=== PATIENT | male | born 1950 | race Caucasian/White ===

== ENCOUNTER → 2018-05-18 14:41 | Outpatient (CLI) | payer MEDICARE, OTHER, SELFPAY | PROVIDERS: PCP Family Medicine; Visit Provider Family Medicine | DX: R55 Syncope and collapse (principal) | CPT/HCPCS: 93270 ==

== ENCOUNTER 2020-10-19 10:23 | Emergency (ER) | payer MEDICARE, SELFPAY ==
[2020-10-19 11:05] VITALS: BP 149/84; PULSE 65; RESP 19; TEMP 37.1; O2SAT 100; BMI 24.8
--- NOTE | 2020-10-19 11:24 | HMH.EDUTC ---
[facility] [place] Clinical Impression: Close exposure to COVID-19 virus Disposition: Home, Self-Care Condition on Discharge: Good Instructions: DI for COVID-19 (Suspected or Confirmed ), Coronavirus Disease 2019, Preventing the Spread of Coronavirus Discharge Instructions Additional Instructions: *Monitor Temp, Over the counter Motrin or Tylenol as directed/as needed Tylenol every 4 hours and Motrin every 6 hours (as long as your family doctor has told you that you can take it) for fever or pain. and straight to ER if unable to lower temp less than 101.0 after medication given Follow up IMMEDIATELY for new or worsening symptoms or no Noticeable improvement over the next 48-72 hours. 911 for difficulty breathing or swallowing You were tested for today for COVID19 your test result should be back in the next 24-48 hours, you may call to the [facility] to see if your test results are back in the next 48 hours [phone] [facility] hours are 9am-9pm You was given a handout with instructions for Self Quarantine and Self isolation for while you wait on test results and what to do if they are positive If you are positive the Health Dept will be contacting you also Make sure to take your Vitamins Vit. C Vit D and Zinc if you can take them Referrals: Rolan Wheatley MD [Primary Care Provider] - As needed Time of Disposition: 11:25 Medical Decision Making - Alex Inquiry Pt receiving controlled substance: No Alex was queried for this patient: No Vital Signs: 10/19/20 11:05 Temperature 98.7 F Temperature Source Oral Pulse Rate [Right Brachial] 65 Respiratory Rate 19 Blood Pressure [Right Arm] 149/84 H Blood Pressure Mean [Right Arm] 105 Blood Pressure Source [Right Arm] Automatic Cuff Blood Pressure Position [Right Arm] Sitting 02 Sat by Pulse Oximetry 100 Oxygen Delivery Method Room Air Orders (Tests/Meds): ORDERS Category Date Time Status Covid-19 Nasal PCR ([facility]) Routine Lab 10/19/20 11:00 Received [facility] [place] - General Stated complaint: Covid test; Time Seen by Provider: 10/19/20 11:24 Mode of Arrival: Ambulatory Source of Information: Patient Limitations: No Limitations Description of Symptoms (Recalled from Triage Doc. by RN): COVID TEST D/T EXPOSURE TO . DENIES SYMPTOMS HEENT Symptoms (Recalled from RN notes): No Resp Symptoms (Recalled from RN notes): No Skin Symptoms (Recalled from RN notes): No MS Symptoms (Recalled from RN notes): No Functional Status (Recalled from RN notes): WNL - History of Present Illness Provider Complaint: Patient state that his tested positive last week for COVID States that he has been around her but not having any symptoms and wanted to get tested to make sure he doesnt have it and just not having any symptoms - Related Data Home Medications Medication Instructions Recorded Confirmed Metformin HCl [Metformin 1000mg 1,000 mg PO BID 01/24/19 01/25/19 Tablets] Simvastatin 20 mg PO DAILY 01/24/19 01/25/19 lisinopriL [Lisinopril 20mg Tab] 20 mg PO DAILY 01/24/19 01/25/19 Allergies Allergy/AdvReac Type Severity Reaction Status Date / Time No Known Allergies Allergy Verified 10/19/20 11:17 - Worker's Comp Is this a Worker's Comp case?: No [facility] History - Hepatitis A Screen Drug use history?: No High risk sexual behaviors?: No History of sexually transmitted infection?: No Currently employed?: No Childcare worker?: No Do you have indoor plumbing?: Yes Do you have electricity?: Yes Attestation statement:: This patient has been screened for Hepatitis A risk factors. I have reviewed the patient's past medical history: Yes Medical History: Denies:: Cancer, Diabetes Mellitus Type 1, Diabetes Mellitus Type 2, Internal Pacemaker, MRSA, Seizures Other Surgeries: No: Pacemaker Amputation: No Fractures: No - Social History Smoking Status: Never smoker Alcohol Intake: never Occupational Status: retired Housing: house Household Members: spouse Fa
[2020-10-19 11:30] VITALS: BP 149/84; PULSE 65; RESP 19; TEMP 37.1; O2SAT 100
== END 2020-10-19 11:33 | disposition home or self-care (01) ==
PROVIDERS: Emergency Provider Nurse Practitioner; PCP Family Medicine
DX: Z20.822 Contact with and (suspected) exposure to COVID-19 (principal)
CPT/HCPCS: G0463; 99202; U0003

== ENCOUNTER → 2021-03-26 15:08 | Outpatient (CLI) | payer MEDICARE, SELFPAY | PROVIDERS: PCP Family Medicine; Visit Provider Nurse Practitioner | DX: Z20.822 Contact with and (suspected) exposure to COVID-19 (principal) | CPT/HCPCS: C9803; U0003; U0005 ==

== ENCOUNTER 2022-09-13 10:56 | Observation (INO) | payer MEDICARE, SELFPAY ==
[2022-09-13] VITALS (8 sets, daily range): BP systolic 103–170; BP diastolic 44–96; PULSE 49–64; RESP 15–18; TEMP 36.1–36.8; O2SAT 95–100; BMI 25.8; BMI 27.0
--- NOTE | 2022-09-13 11:02 | PC.NURSE ---
FS 176
--- NOTE | 2022-09-13 11:06 | PC.NURSE ---
EKG completed. To CT
--- NOTE | 2022-09-13 11:06 | CT_ITS ---
PROCEDURE INFORMATION: Exam: CTA Head With Contrast, Arteriography Exam date and time: 09/13/2022 11:16 AM Age: 72 years old Clinical indication: Stroke-like symptoms; RT upper extremity weakness; Additional info: L headache R hand weakness TECHNIQUE: Imaging protocol: Computed tomographic angiography of the head with contrast. Exam focused on the arteries. 3D rendering (Not supervised by radiologist): MIP and/or 3D reconstructed images were created by the technologist. Radiation optimization: All CT scans at this facility use at least one of these dose optimization techniques: automated exposure control; mA and/or kV adjustment per patient size (includes targeted exams where dose is matched to clinical indication); or iterative reconstruction. Contrast material: ISOVUE; Contrast volume: 100 ml; Contrast route: INTRAVENOUS (IV); REPORTING DATA: Count of CT and Cardiac NM exams in prior 12 months: This patient has received 0 known CTs and 0 known cardiac nuclear medicine studies in the 12 months prior to the current study. COMPARISON: CT HEAD/BRAIN WO CON 09/13/2022 11:13 AM FINDINGS: ANTERIOR CIRCULATION: Right internal carotid artery: Intracranial segment is patent with no significant stenosis. No aneurysm. Right middle cerebral artery: No occlusion or significant stenosis. No aneurysm. Right anterior cerebral artery: No occlusion or significant stenosis. No aneurysm. Left internal carotid artery: Intracranial segment is patent with no significant stenosis. No aneurysm. Left middle cerebral artery: No occlusion or significant stenosis. No aneurysm. Left anterior cerebral artery: No occlusion or significant stenosis. No aneurysm. POSTERIOR CIRCULATION: Right vertebral artery: No occlusion or significant stenosis. No aneurysm. Left vertebral artery: Mild stenosis distal segment left vertebral artery. Or significant stenosis. No aneurysm. Basilar artery: No occlusion or significant stenosis. No aneurysm. Right posterior cerebral artery: No occlusion or significant stenosis. No aneurysm. Left posterior cerebral artery: No occlusion or significant stenosis. No aneurysm. Brain: No intracranial hemorrhage, mass effect, or midline shift. Cerebral ventricles: No ventriculomegaly. Bones/joints: Unremarkable. No acute fracture. Soft tissues: Unremarkable. IMPRESSION: Mild stenosis distal segment left vertebral artery otherwise unremarkable CT angiogram of the brain.
--- NOTE | 2022-09-13 11:06 | ECG_ITS ---
APPROVED REPORT Exam: Resting ECG HR:61 bpm ECG Measurements Heart Rate 61 AXES SD 193 P 15 QRSd 100 QRS 24 QT 404 T 29 QTc 406 Conclusion SINUS RHYTHM NORMAL ECG UNCONFIRMED REPORT Electronically signed by : Rolan Feliz MD 09/14/2022 06:59:17
--- NOTE | 2022-09-13 11:06 | CT_ITS ---
PROCEDURE INFORMATION: Exam: CT Head Without Contrast Exam date and time: 09/13/2022 11:13 AM Age: 72 years old Clinical indication: Stroke-like symptoms; RT upper extremity weakness; Additional info: L headache R hand weakness TECHNIQUE: Imaging protocol: Computed tomography of the head without contrast. Radiation optimization: All CT scans at this facility use at least one of these dose optimization techniques: automated exposure control; mA and/or kV adjustment per patient size (includes targeted exams where dose is matched to clinical indication); or iterative reconstruction. Other technique: STROKE PROTOCOL was implemented. REPORTING DATA: Count of CT and Cardiac NM exams in prior 12 months: This patient has received 0 known CTs and 0 known cardiac nuclear medicine studies in the 12 months prior to the current study. COMPARISON: No relevant prior studies available. FINDINGS: Brain: No intracranial hemorrhage. No mass effect, edema or midline shift. Small hypodensities both basal ganglia some which likely represent old lacunar infarcts. There are vague areas of decreased attenuation within the periventricular white matter likely secondary to chronic microvascular changes. Mild age related cerebral volume loss resulting in prominence of cortical sulci. Cerebral ventricles: Unremarkable for age and degree of cerebral volume loss. Paranasal sinuses: Visualized sinuses are unremarkable. No fluid levels. Mastoid air cells: Visualized mastoid air cells are well aerated. Bones/joints: Unremarkable. No acute fracture. Soft tissues: Unremarkable. IMPRESSION: 1. No acute intracranial abnormality. 2. Bilateral old lacunar infarcts both basal ganglia which could be confirmed on MRI examination of the brain.. 3. Diffuse, chronic white matter microvascular changes. ASSESSMENT: ASPECTS ([place] Stroke Program Early CT Score) is 10.
--- NOTE | 2022-09-13 11:06 | CT_ITS ---
PROCEDURE INFORMATION: Exam: CTA Neck With Contrast Exam date and time: 09/13/2022 11:16 AM Age: 72 years old Clinical indication: Stroke-like symptoms; RT upper extremity weakness; Additional info: L headache R hand weakness TECHNIQUE: Imaging protocol: Computed tomographic angiography of the neck with contrast. 3D rendering (Not supervised by radiologist): MIP and/or 3D reconstructed images were created by the technologist. Radiation optimization: All CT scans at this facility use at least one of these dose optimization techniques: automated exposure control; mA and/or kV adjustment per patient size (includes targeted exams where dose is matched to clinical indication); or iterative reconstruction. Contrast material: ISOVUE; Contrast volume: 100 ml; Contrast route: INTRAVENOUS (IV); REPORTING DATA: Count of CT and Cardiac NM exams in prior 12 months: This patient has received 0 known CTs and 0 known cardiac nuclear medicine studies in the 12 months prior to the current study. COMPARISON: CT HEAD/BRAIN WO CON 09/13/2022 11:13 AM FINDINGS: Right common carotid artery: No stenosis. No dissection or occlusion. Right internal carotid artery: No stenosis of the extracranial segment. No dissection or occlusion. Right external carotid artery: No occlusion or stenosis of the origin. Left common carotid artery: No stenosis. No dissection or occlusion. Left internal carotid artery: No stenosis of the extracranial segment. No dissection or occlusion. Left external carotid artery: No occlusion or stenosis of the origin. Right vertebral artery: No stenosis. No dissection or occlusion. Left vertebral artery: Mild stenosis distal portion left vertebral artery.. No dissection or occlusion. Soft tissues: Normal. No significant soft tissue swelling. Bones/joints: No acute fracture. Moderate degenerative changes lower cervical spine. IMPRESSION: 1. Unremarkable CT angiogram of the carotid circulation. 2. Mild stenosis distal segment left vertebral artery otherwise vertebrobasilar circulation is unremarkable. REFERENCES: NASCET CRITERIA. The degree of stenosis in the cervical segment of the internal carotid artery is based on NASCET criteria. Normal is no stenosis. Mild is less than 50% stenosis. Moderate is 50-69% stenosis. Severe is 70% to 99% stenosis. Total occlusion is no detectable patent lumen.
--- NOTE | 2022-09-13 11:08 | HMH.EDGENADL ---
Discharge Plan Disposition Patient Disposition: Home, Self-Care Condition: Good Chief Complaint: Neuro Symptoms/Deficit Prescriptions Prescriptions: No Action lisinopril 20 MG tablet 20 mg PO DAILY simvastatin 20 MG tablet 20 mg PO DAILY metformin 1,000 MG tablet 1,000 mg PO BID Referrals Follow up/Referrals: Shahriar Walker DO [Primary Care Provider] - See instructions Clinical Impressions Clinical Impression: Headache, CVA (cerebral vascular accident) Discharge ED Provider: Mahesh Castellanos General Adult HPI General Chief complaint: Neuro Symptoms/Deficit Stated complaint: right arm weakness headache Time Seen by Provider: 09/13/22 11:01 History of Present Illness HPI narrative: Patient is a 72-year-old male with past medical history of [id number] diabetes who presents emergency department for evaluation of headache. History is obtained by patient and spouse at bedside. Last known normal approximately 12:30 AM this morning. Patient awoke with difficulty doing complex tasks with his right hand with subjective weakness and a severe left-sided headache, no associated photophobia or phonophobia. Patient denies taking blood thinners. Denies gait difficulties, other extremity weakness, difficulty speaking, facial droop. No other acute complaints at this time. Related Data Home Medications Medication Instructions Recorded Confirmed lisinopril 20 mg tablet 20 mg PO DAILY blood pressure 01/24/19 01/25/19 metformin 1,000 mg tablet 1,000 mg PO BID Diabetes 01/24/19 01/25/19 simvastatin 20 mg tablet 20 mg PO DAILY Cholesterol 01/24/19 01/25/19 Allergies Allergy/AdvReac Type Severity Reaction Status Date / Time No Known Allergies Allergy Verified 10/19/20 11:17 [facility] Disclaimer: The information contained in this section may have been updated after the patient was seen, as this information can be updated by other users. Social History Smoking Status: Unknown if ever smoked alcohol intake: never current occupational status: retired Travel in the last 8 weeks: None household members: spouse housing: house current occupational exposures/hazards: No caffeine: Yes ROS Obtained: Yes Systems reviewed as appropriate & no additional complaints except as documented Physical Exam General General appearance: alert and in no apparent distress Head Head exam: atraumatic and normocephalic Eye Eye exam: Present PERRL and EOMI ENT ENT exam: Present mucous membranes moist Neck Neck exam: Present normal inspection Chest Chest inspection: Present normal inspection and symmetric chest wall rise Respiratory Respiratory exam: Present normal lung sounds bilaterally; Absent respiratory distress Cardiovascular Cardiovascular exam: Present regular rate and normal rhythm Abdominal Exam Abdominal exam: Present soft; Absent tenderness Extremities Exam Extremities exam: Present normal inspection Neurological Exam Neurological exam: Present alert, oriented X3 and CN II-XII intact; Absent motor sensory deficit (5 out of 5 strength bilateral upper and lower extremities, palpable bilateral radial pulses. Extraocular movements intact. Pupils equally round and reactive to light. Sensation intact all extremities.) Psychiatric Psychiatric exam: Present normal affect Skin Skin exam: Present warm and dry Medical Decision Making Alex Inquiry Pt receiving controlled substance: No Vital Signs: 09/13/22 11:10 09/13/22 11:30 Temperature 97 F L Temperature Source Oral Pulse Rate 61 Pulse Rate [Right] 62 Respiratory Rate 15 18 Blood Pressure 160/82 H Blood Pressure [Right Arm] 170/96 H Blood Pressure Mean [Right Arm] 120 Blood Pressure Source [Right Arm] Manual Cuff/ Auscultation 02 Sat by Pulse Oximetry 100 98 Oxygen Delivery Method Room Air Room Air Lab Data Lab Results 09/13/22 11:05: POC Glucose 176 H 09/13/22 11:08: WBC 6.9, RBC 4.67,
--- NOTE | 2022-09-13 11:11 | PC.NURSE ---
pt to CT via stretcher
[2022-09-13 11:16] LABS: POC Glucose,Bedside 176 (70-110)
[2022-09-13 11:30] LABS: Basophils % 0.3 % (0.1-2.0); Eosinophils # 0.2 K/mm3 (0.0-0.4); Eosinophils % 3.4 % (0.1-12.0); Hematocrit 44.1 % (42.0-52.0); Hemoglobin 14.3 g/dL (14.1-18.0); Lymphocytes # 1.5 K/mm3 (0.7-4.5); Lymphocytes % 22.3 % (10-50); Mean Corpuscular HGB Conc 32.5 g/dL (31.8-35.4); Mean Corpuscular Hemoglobin 30.7 pg (27.0-31.2); Mean Corpuscular Volume 94.5 fl (80-94); Mean Platelet Volume 8.8 fl (7.4-10.4); Monocytes # 0.4 K/mm3 (0.1-1.0); Neutrophils # 4.7 K/mm3 (1.8-7.8); Neutrophils % 68.1 % (37.0-80.0); Platelet Count 167 K/mm3 (142-424); Red Blood Count 4.67 M/mm3 (4.60-6.20); Red Cell Distribution Width 13.4 % (11.5-17.5); White Blood Count 6.9 K/mm3 (4.8-10.8)
--- NOTE | 2022-09-13 11:30 | PC.NURSE ---
NIH stroke scale assessment done. Score 2 for mild aphagia and RLE drift.
[2022-09-13 11:35] LABS: Alanine Aminotransferase 37 U/L (12-78); Albumin Level 4.4 g/dl (3.5-5.0); Albumin/Globulin Ratio 1.6 (1.1-1.8); Alkaline Phosphatase 55 U/L (38-126); Anion Gap 12.1 mEq/L (5-15); Aspartate Amino Transferase 35 U/L (17-59); Bilirubin,Total 0.5 mg/dl (0.2-1.3); Blood Urea Nitrogen 12 mg/dl (9-20); Calcium 9.3 mg/dl (8.4-10.2); Carbon Dioxide 26 mmol/L (22.0-30.0); Chloride 105 mmol/L (98-107); Chol/HDL Ratio 3.5 (1-3.5); Cholesterol 104 mg/dl (140-200); Creatinine Clearance Estimated 69 mL/min (50-200); Estimated Glomerular Filt Rate 73 ml/min (>60); GFR (African American) 89 ML/MIN (>60); Globulin 2.7 g/dL (1.3-3.2); Glucose 190 mg/dl (74-100); HDL Cholesterol 30 mg/dl (40-60); Potassium 5.1 mmoL/L (3.5-5.1); Sodium 138 mmol/L (136-145); Total Protein,Serum 7.1 g/dl (6.3-8.2); Triglycerides 114 mg/dl (30-150); VLDL Cholesterol 23 mg/dL (0-40)
[2022-09-13 11:37] LABS: Activated Partial Thrombo Time 31.3 seconds (22.8-30.6); Prothrombin Time 11.8 seconds (10.1-12.5)
--- NOTE | 2022-09-13 12:04 | PC.NURSE ---
notified warehouse receiving supervisor of admission
[2022-09-13 12:10] LABS: Coronavirus 19, PCR Not Detected (NotDetected); Influenza A, PCR Not Detected (NotDetected); Influenza B, PCR Not Detected (NotDetected)
--- NOTE | 2022-09-13 12:16 | PC.NURSE ---
Addendum entered by Casandra Richard RN 09/13/22 12:20: V/O from for 5mg of Compazine IVP and 25mg Benadryl IVP Original Note: Md notified of patient taking 1g Tylenol this morning at 0900. V/O from for 5mg of Compazine and 25mg of Benadryl
--- NOTE | 2022-09-13 12:42 | PC.NURSE ---
notified of patients no resolved RLE drift patient now has moderate aphagia. Score is now a 1 for NIH scale
--- NOTE | 2022-09-13 12:48 | PC.NURSE ---
Report called to Shahriar AYALA second floor
--- NOTE | 2022-09-13 13:00 | PC.NURSE ---
PT WALKED IN HALLWAY WHILE WEARING TELEMETRY. HR INCREASED FROM 42 BPM TO 50 BPM WHILE AMBULATING. WHEN PT RETURNED TO ROOM AND SAT BACK IN BED HR RETURNED TO 45 BPM.
--- NOTE | 2022-09-13 13:22 | PC.NURSE ---
Floor called to verify staff was coming to get patient.
--- NOTE | 2022-09-13 14:04 | HMH.PHAINT1 ---
Pharmacy Intervention Comments: MEDICATION RECONCILIATION COMPLETE USING EXTERNAL PHARMACY FILL HISTORY.
--- NOTE | 2022-09-13 15:23 | EXP.HP ---
History of Present Illness *Admission Date: 09/13/22 *Reason for visit:: Headache and right upper extremity weakness x 1 day *History of present illness: 72 Y/O Male with hx of NIDDM, HTN, HLD, Migraines presented to ER with c/o acute onset headache and right upper ext weakness that started last night at 12:30 am. History was obtained from patient himself, his spouse and son at bedside. Some parts of the history was obtained from review of ER records and also discussing patient's case with the ER physician who evaluated the patient. According to patient he woke up at around 12:30 AM last night with complaints of headache which is located on the left side, described as throbbing, severe in intensity without radiation. He then noticed he had some right upper extremity weakness described as difficulty doing complex task with his right hand. No gait instability or speech difficulty. He denies any prior symptoms of stroke or prior history of CVA. He did not notice any facial droop or other symptoms like dizziness vertigo or blurry vision. Because of the right hand weakness he decided to come to ER for further evaluation. In the ER is routine lab work within normal limits. On exam his NIH stroke scale score was 2. Stat CT head without contrast was negative for any acute bleed. CTA head and neck showed old basal ganglial lacunar infarcts bilaterally, mild stenosis of the left vertebral artery. He was out of the tPA window hence no tPA was given. For his headache he was given a migraine cocktail. When I saw him in the room patient was a little bit drowsy probably from the Benadryl he received from the ER for his headache. He was easily awakened by just calling his name. He said his right extremity weakness completely resolved. His headache improved. No other new symptoms reported. He said he is compliant with his medication and was recently seen by his primary care physician who added a new diabetic medication to the regimen. He reports history of migraine headaches in the past but nothing recent. He said he was out in the sun with his sister over the weekend and probably might of caused some dehydration. [facility] Disclaimer: The information contained in this section may have been updated after the patient was seen, as this information can be updated by other users. Medical History (Updated 09/13/22 @ 15:46 by Luis Felipe Marie MD) Diabetes mellitus, type 2 Essential hypertension Hypertension Surgical History (Updated 09/13/22 @ 13:57 by Kathi Adams RN) H/O vasectomy Family History (Updated 09/13/22 @ 13:56 by Kathi Adams RN) Other No significant family history Social History (Updated 09/13/22 @ 13:57 by Kathi Adams RN) Smoking Status: Never smoker alcohol intake: never current occupational status: retired Travel in the last 8 weeks: None household members: spouse housing: house current occupational exposures/hazards: No caffeine: Yes Review of Systems Review of Systems Review of systems:: pertinent systems reviewed and negative unless documented below Constitutional Constitutional: Reports headache(s) Eyes Comments: No blurry vision or diplopia ENT Ears, Nose, Mouth, and Throat: Reports headache(s) Comments: No dizziness or vertigo symptoms *Cardiovascular Comments: No chest pain or leg swelling or exertional dyspnea or orthopnea, no palpitation *Respiratory Comments: No shortness of breath or cough *Gastrointestinal Comments: No nausea or vomiting or diarrhea or constipation or abdominal pain *Genitourinary Comments: No dysuria or increased frequency of urination *Musculoskeletal Comments: No new joint pains Integumentary/Breasts Comments: No new skin rash *Neurologic Neurologic: Reports headache(s) Comments: Weakness of the upper extremity resolved. Headache improving Psychiatric Comments: No confusion, Agitation. Not feeling depressed or anxious Endocrine
--- NOTE | 2022-09-13 16:57 | PC.NURSE ---
NEW ADMIT THIS SHIFT. PT FATIGUED ON ARRIVAL AND HAS SLEPT SINCE ARRIVAL ASIDE FROM MEDIATIONS AND ASSESSMENTS. NEURO CHECKS Q4HRS. PT AMBULATING TO RESTROOM WITH STANDBY ASSIST. SWALLOWING PILLS EFFECTIVELY AND TOLERATED SMALL SIPS OF WATER FOR MED PASS.
[2022-09-13 21:09] LABS: POC Glucose,Bedside 162 (70-110)
[2022-09-14] VITALS: BP 130/72; PULSE 68; PULSE 70; RESP 18; TEMP 36.7; O2SAT 96
[2022-09-14 04:00] VITALS: BP 129/74; PULSE 60; RESP 18; TEMP 36.9; O2SAT 96; BMI 28.0
[2022-09-14 06:56] LABS: POC Glucose,Bedside 84 (70-110)
[2022-09-14 07:49] VITALS: BP 122/65; PULSE 63; RESP 18; TEMP 36.6; O2SAT 95
[2022-09-14 07:58] LABS: Anion Gap 10.7 mEq/L (5-15); Blood Urea Nitrogen 14 mg/dl (9-20); Calcium 8.7 mg/dl (8.4-10.2); Carbon Dioxide 24 mmol/L (22.0-30.0); Chloride 107 mmol/L (98-107); Chol/HDL Ratio 3.7 (1-3.5); Cholesterol 93 mg/dl (140-200); Creatinine Clearance Estimated 75 mL/min (50-200); Estimated Glomerular Filt Rate 73 ml/min (>60); GFR (African American) 89 ML/MIN (>60); Glucose 90 mg/dl (74-100); HDL Cholesterol 25 mg/dl (40-60); Potassium 4.7 mmoL/L (3.5-5.1); Sodium 137 mmol/L (136-145); Triglycerides 119 mg/dl (30-150); VLDL Cholesterol 24 mg/dL (0-40)
[2022-09-14 08:00] VITALS: PULSE 60
[2022-09-14 08:09] LABS: Direct LDL Cholesterol 52.65 mg/dL (100-129)
[2022-09-14 08:13] LABS: Hemoglobin A1C 7.1 % (4.0-6.0)
--- NOTE | 2022-09-14 10:39 | EXP.DC.SUM ---
General Admission date:: 09/13/22 Discharge date: 09/14/22 HPI HPI HPI: 72 Y/O Male with hx of NIDDM, HTN, HLD, Migraines presented to ER with c/o acute onset headache and right upper ext weakness of 1 day duration. In the ER his routine lab work within normal limits. On exam his NIH stroke scale score was 2. Stat CT head without contrast was negative for any acute bleed. CTA head and neck showed old basal ganglial lacunar infarcts bilaterally, mild stenosis of the left vertebral artery. He was out of the tPA window hence no tPA was given. For his headache he was given a migraine cocktail. He was admitted for stroke rule out and management of his headache. Hospital Course Hospital Course Hospital Course: 72-year-old male with history of diabetes and hypertension presented to ER with complaints of left-sided headache and right upper extremity motor weakness. Symptoms resolved within less than 24 hours. His headache resolved. His work-up showed old bilateral basal ganglia lacunar infarcts but no new strokes. Currently patient's neuro exam without any deficits. His blood work showed features of dehydration which was corrected with IV fluids. His A1c is 7.1. His LDL is within goal. His home medications including antihypertensives and antidiabetic medications were resumed. Patient to take current dose of statin and to follow-up with primary care. 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 The fact the patient was dehydrated on presentation could have played a role as well. Patient to hydrate himself well. Patient to follow-up with primary upon discharge. More than 30 minutes was spent on coordinating this discharge which included review of imaging, labs, other diagnostics, discussing care plan with patient, review of discharge medication reconciliation, patient education. Exam Data for Last 24 hours Vital signs and Labs for Last 24 Hours: Temp Pulse Resp BP Pulse Ox O2 Del Method 97.9 F 63 18 122/65 95 Room Air 09/14/22 07:49 09/14/22 07:49 09/14/22 07:49 09/14/22 07:49 09/14/22 07:49 09/14/22 09:00 Laboratory Results - last 24 hr 09/13/22 11:05: POC Glucose 176 H 09/13/22 11:08: WBC 6.9, RBC 4.67, Hgb 14.3, Hct 44.1, MCV 94.5 H, MCH 30.7, MCHC 32.5, RDW 13.4, Plt Count 167, MPV 8.8, Neut % (Auto) 68.1, Lymph % (Auto) 22.3, Reeves % (Auto) 6.0, Eos % (Auto) 3.4, Baso % (Auto) 0.3, Neut # (Auto) 4.7, Lymph # (Auto) 1.5, Reeves # (Auto) 0.4, Eos # (Auto) 0.2, Baso # (Auto) 0.0, PT 11.8, INR 1.10, APTT 31.3 H, Sodium 138, Potassium 5.1, Chloride 105, Carbon Dioxide 26, Anion Gap 12.1, BUN 12, Creatinine 1.00, Estimated Creat Clear 69, Estimated GFR 73, Est GFR ( Amer) 89, Glucose 190 H, Calcium 9.3, Total Bilirubin 0.5, AST 35, ALT 37, Alkaline Phosphatase 55, Total Protein 7.1, Albumin 4.4, Globulin 2.7, Albumin/Globulin Ratio 1.6, Triglycerides 114, Cholesterol 104 L, LDL Cholesterol Direct 57.70 L, VLDL Cholesterol 23, HDL Cholesterol 30 L, Cholesterol/HDL Ratio 3.5 09/13/22 12:04: SARS-CoV-2 (PCR) Not detected, Influenza A Untype (PCR) Not detected, Influenza Type B (PCR) Not detected 09/13/22 21:00: POC Glucose 162 H 09/14/22 06:48: POC Glucose 84 09/14/22 07:10: Sodium 137, Potassium 4.7, Chloride 107, Carbon Dioxide 24, Anion Gap 10.7, BUN 14, Creatinine 1.00, Estimated Creat Clear 75, Estimated GFR 73, Est GFR ( Amer) 89, Glucose 90 D, Hemoglobin A1c 7.1 H, Calcium 8.7, Triglycerides 119, Cholesterol 93 L, LDL Cholesterol Direct 52.65 L, VLDL Cholesterol 24, HDL Cholesterol 25 L, Cholesterol/HDL Ratio 3.7 H I & O for Last 24 hours: Intake & Output 09/11/22 09/12/22 09/13/22 09/14/22 23:59 23:59 23:59 23:59 Intake Total 720 / 720 Output Total 300 / 300 0 / 0 Balance -300 / -300 720 / 720 Weight 76.249 kg 79.038 kg Constitutional Constitutional: no acute distress and average body habitus *Routine HEENT Exam Head:
[2022-09-14 16:38] LABS: POC Glucose,Bedside 139 (70-110)
--- NOTE | 2022-09-15 15:03 | CARE MANAGER ---
Contacted patient related to hospital discharge. He did not have new medications. He has not made a follow up appointment yet, but states he will do it today. He denies questions or concerns. JAMIE Elliott
== END 2022-09-14 11:22 | disposition home or self-care (01) ==
LOC: ER 12:07 → 2ND 12:11
PROVIDERS: Admitting Provider Internal Medicine; Emergency Provider Emergency Medicine; PCP Internal Medicine; Visit Provider Internal Medicine
DX: G45.9 Transient cerebral ischemic attack, unspecified (principal); G43.909 Migraine, unspecified, not intractable, without status migrainosus; E11.65 Type 2 diabetes mellitus with hyperglycemia; I10 Essential (primary) hypertension; E78.5 Hyperlipidemia, unspecified; Z79.4 Long term (current) use of insulin; Z79.899 Other long term (current) drug therapy
CPT/HCPCS: G0378; 36415; 70450; 70496; 70498; 80048; 80053; 80061; 82962; 83036; 85025; 85610; 85730; 87636; 99285; J2405; Q9967

== ENCOUNTER 2024-08-10 14:29 | Outpatient (CLI) | payer MEDICARE, SELFPAY ==
--- OUTSIDE RECORDS SUMMARY | 2024-08-10 14:31 | XMS_ITS | Referral Summary ---
Author Organization [employer] Address [address] [place] [address] Care Team Providers Care As400 Developer Name Role Phone Unavailable Primary Care Provider Unavailabl e Social History Tobacco Use Types Packs/Day Years Used Date Smoking Tobacco: Never Assessed Interpersonal Safety Answer Date Record ed Family or friends hurt you Not on file 03/13 Family or friends insult you Not on file 01/2024 Family or friends threaten you Not on file 0 03/13/2023 Family or friends scream or curse at you Not on file 03/13/2023 Housing Stability Answer Date Recorded Living situation today Not on file Living situation problems Not on file 2023 Food Insecurity Answer Date Recorded Food run out past 12 months Not on file 03/02 Food did not last past 12 months Not on file 03/13/2023 Employment Answer Date Recorded Help finding and keeping a job Not on file 0 03/13/2023 Family and Community Support Answer Meet e Recorded Help with Day to Day Activities Not on file 03/13/2023 Feeling Lonely or Isolated Not on file 03/13 Educational Attainment Answer Date Isiah rded Speak language other than Albanian at home Not on file 03/13/2023 Want help with school or training Not on file 03/13/2023 Depression Answer Date Recorded PHQ-2 Risk Not on file 03/13/2023 Disabilities Answer Date Recorded Difficulty concentrating Not on file 024 Difficulty doing errands alone Not on file 0 03/13/2023 Substance Use Answer Date Recorded Used prescription meds for non-medical reasons N ot on file 03/13/2023 Used illegal drugs past 12 months Not on file 03/13/2023 Sex and Gender Information Value Date Recorded Sex Assigned at Not on file Legal Sex Male 7:17 AM CDT Gender Identity Not on file Sexual Orientation Not on file Plan of Treatment Not on file Insurance [facility] MEDICAID
--- OUTSIDE RECORDS SUMMARY | 2024-08-10 14:31 | XMS_ITS | Data Portability ---
Author Organization [facility] [place] [facility] Address [address] [place] [address] Care Team Providers Care Vice President Of Development Name Role Phone GIOVANNI CASTANO Referring Provider [phone] Assessment Encounter Date Assessment Date Assessment LastModified by Organization Details LastModified Time 12/16/2022 12/16/2022 72 yo new pt her e today with memory concerns and recent bad STEVENSON Here today with no further STEVENSON since the episode in August. Based on CT scans will get MRI of brain for further evaluation of what happened acutely in August and also to take another look at the areas in the basal ganglia they commented on. Memory is an issue that both he and his have noticed. MMSE today 30/30 with no problems. Will send him for some lab work today as well Will refer him for neurocognitive testing to see if she can find any other contributing factors. If that shows some neurodegenerative changes we can go on and start on a medication. They will followup with me in the office following his MRI, I will get lab results to him as soon as possible. [email or web address] Not available 12/16/2022 15:58:41 01/06/2023 01/06/2023 72 yo here today for MRI followup Labs were normal, he has gone back and we are waiting on the B1 level MRI with some white matter changes and atrophy, a couple of punctate lesions. We did review those images today in the office. He has his neurocognitive testing scheduled for 01/29/23. We will plan for telehealth visit mid Jan to discuss those results and decide how to proceed [email or web address] Not available 01/06/2023 14:12:00 Plan of Treatment Reminders Order Date Submit Date Provider Last Modified By Organization Details Last Modified Time Details Appointments None recorded. Lab CMP, serum or plasma 10/17/ 2023 10/17/2 023 [facility], [address] [place] [address], [id number], 16:30:53 vitamin B12 + folate, serum or blood 2022 023 [facility], [address] [place] [address], [id number], 17:00:22 TSH, serum, reflex free T4 2022 023 [facility], [address] [place] [address], [phone], 16:34:22 Referral None recorded. Procedures None recorded. Surgeries None recorded. Imaging MRI, brain, w/wo contrast 2022 023 [email or web address] 91 [facility], [address] [place] [address], [phone], 15:46:19 Medication Orders None recorded. Patient TargetsNo targets recorded. Patient Instructions Encounter Date Encounter Id Patient Instructions Last Modified By Organization Details Last Modified Time 12/16/2022 [id number] thiamine (vitami n B1) [email or web address] Not available 12/16/2022 15:07:18 neurocognitive assessment* [email or web address] Not available 12/16/2022 15:30:07 Reason for Referral None Reported. Results Created Date Observation Date Name Description Value Unit Range Abnormal Flag Note LastModifiedBy Organization Detail LastModifiedTime 12/17/1912/16/2022 COMP. METAB OLIC PANEL glucose 230 mg/dL 74-100 high Not Available [facility] [address] [place] [address], [phone], 12/16/2022 16:30:53 12/17/19 23 12/16/2022 COMP. METAB OLIC PANEL blood urea nitrogen 17 mg/dL 6-20 normal Not Available [facility] [address] [place] [address], [phone], 12/16/2022 16:30:53 12/17/19 23 12/16/2022 COMP. METAB OLIC PANEL creatinine 1.12 mg/dL 0.70-1 .28 normal Not Available [facility] [address] [place] [address], [phone], 12/16/2022 16:30:53 12/17/19 23 12/16/2022 COMP. METAB OLIC PANEL BUN/creatini ne ratio 15 (calc ) 10-20 normal Not Available [facility] [address] [place] [address], [phone], 12/16/2022 16:30:53 12/17/19 23 12/16/2022 COMP. METAB OLIC PANEL sodium 139 mmol/ L 136-14 5 normal Not Available [facility] [address] [place] [address], [address], 12/16/2022 16:30:53 12/17/19 23 12/16/2022 COMP. METAB OLIC PANEL potassium 4.5 mmol/ L 3.4-5. 0 normal Not Available [facility] [address] [place] [address], [phone], 12/16/2022 16:30:53 12/17/19 23 12/16/2022 COMP. METAB OLIC PANEL chloride 103 mmol/ L 98-107 normal Not Available [facility] [address] [place] [address], [phone], 12/16/2022 16:30:53 12/17/19 23 12/16/2022 COMP. METAB OLIC PANEL carbon dioxide 25 mmol/ L 22-31 normal Not Available [facility] [address] [place] [address], [phone], 12/16/2022 16:30:53 12/17/19 23 12/16/2022 COMP. METAB OLIC PANEL anion gap 11 (calc ) 7-25 normal Not Available [facility] [address] [place] [address], [phone], 12/16/2022 16:30:53 12/17/19 23 12/16/2022 COMP. METAB OLIC PANEL calcium 10.1 mg/dL 8.6-10 .2 normal Not Available [facility] [address] [place] [address], [id number], 12/16/2022 16:30:53 12/17/19 23 12/16/2022 COMP. METAB OLIC PANEL total protein 7.5 g/dL 6.4-8. 3 normal Not Available [facility] [address] [place] [address], [id number], 12/16/2022 16:30:53 12/17/19 23 12/16/2022 COMP. METAB OLIC PANEL albumin 4.7 g/dL 3.5-5. 2 normal Not Available [facility] [address] [place] [address], [phone], 12/16/2022 16:30:53 12/17/19 23 12/16/2022 COMP. METAB OLIC PANEL globulin 2.8 1.5-4. 5 normal Not Available [facility] [address] [place] [address], [phone], 12/16/2022 16:30:53 12/17/19 23 12/16/2022 COMP. METAB OLIC PANEL albumin/glob ulin ratio 1.7 (calc ) 1.1-2. 5 normal Not Available [facility] [address] [place] [address], [phone], 12/16/2022 16:30:53 12/17/19 23 12/16/2022 COMP. METAB OLIC PANEL bilirubin, total 0.2 mg/dL 0.1-1. 2 normal Not Available [facility] [address] [place] [address], [phone], 12/16/2022 16:30:53 12/17/19 23 12/16/2022 COMP. METAB OLIC PANEL alkaline phosphatase 58 U/L 40-129 normal Not Available [facility] [address] [place], [address], 12/16/2022 16:30:53 12/17/19 23 12/16/2022 COMP. METAB OLIC PANEL AST 21 U/L 0-40 normal Not Available [facility] [address] [place], [address], 12/16/2022 16:30:53 12/17/19 23 12/16/2022 COMP. METAB OLIC PANEL ALT 31 U/L 0-41 normal Not Available [facility] [address] [place], [address], 12/16/2022 16:30:53 12/17/19 23 12/16/2022 COMP. METAB OLIC PANEL GFR 70 >= 60 normal NOT E New calcu latio n for GFR (CKD- EPI 2020) is formu lated witho ut race adjus tment facto rs at the recom menda tion of the [employer] ation and Ameri can Socie ty of Nephr ology . This calcu latio n has not been valid ated in pregn ant women . For pedia tric patie nts refer to https ://sina singh.edward munoz/pr eva cancholaal s/KDO QI/gf r_cal culat orPed Not Available [facility] [address] [place], [address], 12/16/2022 16:30:53 12/17/19 23 12/16/2022 TSH WITH REFLE X FT4 TSH with reflex FT4 1.820 u[IU] /mL 0.270- 4.200 normal Not Available [facility] [address] [place], [address], 12/16/2022 16:34:22 12/17/19 23 12/16/2022 B12/F OLIC ACID PANEL folic acid 10.6 NG/mL 4.6-34 .8 normal Not Available [facility] [address] [place], [address], 12/16/2022 17:00:22 12/17/19 23 12/16/2022 B12/F OLIC ACID PANEL vitamin B12 >2000 pg/mL 232-12 45 high Not Available [facility] [address] [place], [address], 12/16/2022 17:00:22 01/03/20 23 01/08/2023 VITAM IN B1 vitamin B1 6 nmol/ L 8-30 low (Note ) Vitam in suppl ement ation withi n 24 hours prior to blood draw may affec t the accur acy of the resul ts. This test was devel oped and its leonarda tical perfo rmanc e claudia cteri stics have been deter mined by [facility]. It has not been clear ed or appro michael by FDA. This assay has been valid ated pursu ant to the CLIA regul ation s and is used for clini bridgette purpo ses. MDF med fusio n [address] [facility] [address] [facility] [address] [phone] Armani will MD Not Available [facility] [address] [place], [address], 01/08/2023 09:55:05 12/17/19 23 09/13/2022 CT, angio gram, head + neck, w/ contr ast No observ ation record ed. [email or web address] Not Available 2022 15:47:49 01/03/20 23 01/02/2023 MRI, brain , w/wo contr ast [facility] [address] [place] [address] [place] [address] Jihanpuneet pepe Name: HIPOLITO pepe : [phone] Kaushik pepe Orderi ng Provid er: MARINO URBAN EXAM DATE: 2022 EXAM: MR BRAIN W/WO CONTRA ST HISTOR Y: 72-yea r-old male with short- term memory loss. COMPAR KWADWO: None. The patien t did not requir e sedati on for this exam. No POC testin g for eGFR was perfor med due to absenc e of risk factor s. FINDIN GS: The ventri cles are modera tely enlarg ed and minima lly asymme tric. There is no mass, mass effect , or midlin e shift. There is no abnorm al extra- axial fluid, intrac ranial hemorr dania, or acute infarc tion. The diffus ion weight ed sequen joshua are normal . There are modera te perive ntricu lar white matter change s. There are multip le perive ntricu lar and subcor tical white matter lesion s. There is a puncta te old insult in the left thalam us. After intrav enous admini strati on of 7.[address] ([facility] [phone] 1), there is no abnorm al enhanc ement in the brain. The international marketing intern al caroti d and basila r flow-v oids are normal . There is minima l to mild mucosa l thicke conchita in the parana naresh sinuse s. There is a small amount of fluid in the left mastoi d air cells. IMPRES MEGA: 1. There is modera te diffus e cerebr al atroph y and white matter change s in the brain. No acute intrac ranial abnorm ality is identi fied. Interp reted By: Manuela lundberg MD Electr onical ly Signed By: Manuela lundberg MD on 023 3:47 PM [email or web address] [address] [place], [address], 01/06/2023 15:13:05 Result Notes None recorded. Procedures Surgical History Date Name Laterality Status Provider Name and Address Organization Details Recorded Time vasectomy completed Ghada Foley [facility] 12/16/2022 14:20:49 Imaging Results None recorded. Procedure Notes None recorded. Medical Equipment None Reported. Allergies No known drug allergies Medications Name Sig Start Date Stop Date Status Note LastModified by Organization Details LastModified Time glyburide 2.5 mg tablet Take 1 tablet every day by oral route. active Not Available Not Available No t Available aspirin 81 mg tablet,delaye d release Take 1 tablet every day by oral route. active Not Available Not Available No t Available simvastatin 20 mg tablet Take 1 tablet every day by oral route. active Not Available Not Available No t Available metformin 1,000 mg tablet Take 1 tablet twice a day by oral route. active Not Available Not Available No t Available lisinopril 40 mg tablet Take 1 tablet every day by oral route. active Not Available Not Available No t Available zinc active Not Available Not Availa ble Not Available niacin active Not Available Not Availa ble Not Available Vitamin D3 active Not Available Not Av ailable Not Available Vitamin B12 active Not Available Not A vailable Not Available Vitals Date Recorded Body height Body mass index (BMI) Body weight Heart rate Oxygen saturation Oxygen saturation in Arterial blood by Pulse oximetry Systolic blood pressure Diastolic blood pressure Provider Name and Address Organization Details Last Updated DateTime 3 177.8 cm 26.1 kg/m2 96575.5 1 g 64 /min 98 % 98 % 128 mm[Hg] 80 mm[Hg] Ghada Alaina [facility] 3 14:22:19 Date Recorded Body height Body mass index (BMI) Body weight Heart rate Oxygen saturation Oxygen saturation in Arterial blood by Pulse oximetry Systolic blood pressure Diastolic blood pressure Provider Name and Address Organization Details Last Updated DateTime 3 177.8 cm 26.1 kg/m2 94530.8 1 g 65 /min 98 % 98 % 128 mm[Hg] 80 mm[Hg] Nicol Kostas [facility] 3 13:30:09 Social History Question Answer Notes LastModified by Palette Details LastModified Time Tobacco Smoking Status Never [facility] 12/16/2022 14:20:35 What Was The Date Of Your Most Recent Tobacco Screening? 12/16/2022 Information not available 12/16/2022 What Is Your Relationship Status? Information not available 12/16/2022 Sex: Unknown Functional Status Question Answer Note LastModified by Palette Details LastModified Time Are you currently employed? No retired Information not available 12/16/2022 Mental Status None recorded. Family History Nothing Reported. Medical History Condition Response Diabetes Y Hypertension Y Past Encounters Encounter ID Performer Location Encounter Start Date Encounter Closed Date Diagnosis/Indication Diagnosis SNOMED-CT Code Diagnosis ICD10 Code Diagnosis Note [id number] EVY URBAN [facility] [address] [place] [phone] 12/16/2022 14:02:52 12/17/2022 04:24:06 Poor short-term memory 293611767 R41.3 Headache 00368725 R51.9 [id number] [facility] URB[facility] [address] [place] [address] 01/06/2023 13:02:39 01/07/2023 04:16:45 Memory impairment 137469150 R41.3 Health Concerns Section Related Observation LastModified by Organization Detai ls LastModified Time None Recorded Concern Status LastModified by Organization Details LastModified Time None Recorded Advance Directives Directive None Recorded Payers Insurance Date Sequence Insurance Name Policy Number Policy Aly Covered Member ID Aly Member ID Guarantor Name 01/03/2023 1 [employer] - GOLD PLUS (MEDICARE REPLACEMENT/A DVANTAGE - HMO) Hipolito Lockhart [id number] Hipolito Lockhart 12/16/2022 1 [employer] (MEDICARE REPLACEMENT/A DVANTAGE - HMO) Hipolito Lockhart [id number] Hipolito Lockhart Notes Date Note Type Note Provider Name and Address Organization Details Recorded Time 3 text/html 72 yo new pt here today for memory loss consult - referred by Ana Lynn here today reports he is here for headaches. H/O stroke?? Per CT scan but no previous symptomsSnores but reports well rested, no apnea noted by wifeOn B12 every other day - just because Here today with his PegAdmitted to the hospital in August due to a STEVENSON and had CT scan and that showed 2 old strokes that were small - never with any symptoms to indicate that happened.Has had headaches before but not often, at one time was having them pretty regular and when he went on HTN meds they went away. That was many years ago.The STEVENSON that took him to the hospital was right in the top a little to the left of midline. He woke up with it that morning. Took some tylenol and it wasn't getting any better.With this one he was also having some right arm weakness in the hand and wrist, that resolved before the pain. No slurring of speech, did seem like when he stuck his tongue out it was off the right.Has not had another scan since this incident.Has not had another STEVENSON since August - that one ended up lasting most of the day.No vision changes He feels the memory has been going on a little bit before the STEVENSON.Trouble with names, short term memory.Sometimes it is a little further back in the last month or so.Things that happened in the past are not a problem to remember.Seems like since the STEVENSON the memory has gotten worse. feels that memory has been getting worse over the last 2 years, not really anything significant since the above HADriving and has noticed more mistakes, will take a wrong exit, may go the wrong wayNo trouble remembering Lane is not doing as much of the finances because he feels like he is more likely to make some mistakes No concerns with gait or balance 09/13/22: CT head with contrast shows bilateral old lacunar infarcts both basal ganglia - recommend MRI. Diffuse chronic white matter microvascular changesCT angiogram shows clear carotid arteries, mild stenosis left vertebral artery EVY URBAN PA-C [address] [place], [address], [facility] 12/16/2022 15:59:14 3 text/html 72 yo here today for followup after MRI with memory issuesLabs were normal on 12/16/22: TSH, Vit B12.01/02/23 MRI brain w/wo contrast: 1. There is moderate diffuse cerebral atrophy and white matter changes in the brain. No acute intracranial abnormality is identified. Had the B1 level drawn last week when he was here for the MRI - results pendingNeurocognitive testing - scheduled for 01/29/23. 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 Mechanically inclined. EVY URBAN PA-C [address] [place], [address], [facility] 01/06/2023 14:12:07
--- OUTSIDE RECORDS SUMMARY | 2024-08-10 14:31 | XMS_ITS | Encounter Summary ---
Author Organization [employer] Address [address] [place] [address] Care Team Providers Care Regulatory Auditor Name Role Phone Unavailable Primary Care Provider Unavailabl e Reason for Referral * Consultation (Routine) - Closed Specialty Diagnoses / Procedures Referred By Les pepe Referred To Contact Behavioral Health Diagnoses Other amnesia Val De La Vega PA-C [address] [address] Phone: tel: Sylwia Luna, [place] [address] [place] [address] Phone: tel: fax: Referral ID Status Reason Start Date Expiration Date V isits Requested Visits Authorized [id number] Closed Specialty Services Required 12/29/2022 06/27/2023 1 1 Encounter Details Date Type Department Care Team (Late st Contact Info) Description 12/29/2022 Outside Orders [facility] Central Scheduling [address] [place] [address] Val De La Vega PA-C [address] [place] [address] Other amnesia (Primary Dx) Social History Tobacco Use Types Packs/Day Years Used Date Smoking Tobacco: Never Assessed Sex and Gender Information Value Date Recorded Sex Assigned at Not on file Legal Sex Male 7:17 AM CDT Gender Identity Not on file Sexual Orientation Not on file documented as of this encounter Plan of Treatment Scheduled Referrals Name Type Priority Associated Diagnoses Order Schedule Ambulatory referral to Behavioral Health Outpatient Referral Routine Other amnesia Expected: 12/29/2022, Expires: 12/30/2023 documented as of this encounter Visit Diagnoses Diagnosis Other amnesia- Primary documented in this encounter
--- OUTSIDE RECORDS SUMMARY | 2024-08-10 14:31 | XMS_ITS | Clinical Summary ---
Author Organization [employer] Address [address] [place] [address] Care Team Providers Care Inside Sales Person Name Role Phone Unavailable Primary Care Provider [...] Date Isiah rded Speak language other than Polish at home Not on file 03/13/2023 Want [...] Orientation Not on file Plan of Treatment Health Maintenance Due Date Last Done Comments CT Colonography 1950 Colonoscopy 1950 Colorectal Cancer Screening 1950 FOBT/FIT 1950 Fit-DNA (Cologuard) 1950 Sigmoidoscopy 1950 Depression Screening (12+) 1962 Tobacco Cessation Counseling and Screening (12+) 05/12 Hepatitis C Screening 1968 DTAP/TDAP/TD VACCINES (1 - Tdap) 1969 Pneumococcal 50+ years (1 of 1 - PCV) 2000 Shingles Vaccine (Zoster) (1 of 2) 2000 COVID-19 VACCINE (1 - 2023- season) 2023 Falls Risk Screening 03/02/2024 Influenza Vaccine (Season Ended) 2024 11/23/19 16 Respiratory Syncytial Virus (RSV) Adult or (1 - 1-dose 75+ series) 2025 Insurance [facility] [employer]
--- OUTSIDE RECORDS SUMMARY | 2024-08-10 14:31 | XMS_ITS | Clinical Summary ---
Author Organization [facility] Address [address] [place] [address] Phone Care Team Providers Care Field Laborer Name Role Phone Rolan Wheatley Primary Care Provider Allergies No known active allergies Medications metFORMIN (GLUCOPHAGE) 1,000 mg Oral Tablet Take 1,000 mg by mouth 2 times daily (with meals). Active lisinopril (PRINIVIL;ZESTRI L) 20 mg Oral Tablet tablet Take 20 mg by mouth daily. Active simvastatin (ZOCOR) 20 mg Oral Tablet Take 20 mg by mouth nightly. Active aspirin 81 mg Oral Tablet, Delayed Release (E.C.) Take 81 mg by mouth daily. Active Medical History Medical History Date Comments Diabetes mellitus (HCC) Hypertension Social History Tobacco Use Types Packs/Day Years Used Date Smoking Tobacco: Never Alcohol Use Standard Drinks/Week Comments No 0 (1 standard drink = 0.6 oz pur e alcohol) Sex and Gender Information Value Date Recorded Sex Assigned at Not on file Legal Sex Male 7:23 AM EDT Gender Identity Not on file Sexual Orientation Not on file Obstetrics History Last Filed Vital Signs Vital Sign Reading Time Taken Comments Blood Pressure 127/73 05/17/2018 9:58 AM EDT Pulse 76 05/17/2018 9:58 AM EDT Temperature 36.3 C (97.4 F) 05/17/2018 7:30 AM EDT Respiratory Rate 22 05/17/2018 9:58 AM EDT Oxygen Saturation 100% 05/17/2018 9:58 AM EDT Inhaled Oxygen Concentration - - Weight 77.1 kg (170 lb) 05/17/2018 7:30 AM EDT Height 182.9 cm (6') 05/17/2018 7:30 AM EDT Body Mass Index 23.06 05/17/2018 7:30 AM EDT Plan of Treatment Health Maintenance Due Date Last Done Comments Wellness Exam Medicare 1953 Hepatitis C Screening 1968 DTaP/TDaP/Td (1 - Tdap) 1969 Cologuard 05/13/1995 Colon Cancer Screening 05/13/1995 Colonoscopy 05/13/1995 FIT 05/13/1995 Sigmoidoscopy 05/13/1995 Virtual Colonography 05/13/1995 Pneumococcal Vaccine 50+ (1 of 1 - PCV) 2000 Zoster (1 of 2) 2000 COVID-19 Vaccine ( - 2023-2 5 season) 2023 Influenza Vaccine (Season Ended) 2024 Hepatitis B Vaccine Aged Out No longe r eligible based on patient's age to complete this topic Meningococcal B Vaccine Aged Out No l onger eligible based on patient's age to complete this topic Insurance MEDICARE [place] PART A AND B Member Subscriber Plan / Payer (Ef fective 2015-Present) Name:Hipolito Lockhart Member ID:[id number] Relation to Subscriber:Self Name:Hipolito Lockhart Subscriber ID:[id number] Payer ID:Not on file Group ID:Not on file Type:Not on file Address: [address] MEDICARE [place] PART A AND B [facility] Care Teams Field Laborer Relationship Specialty Start Date End Date Rolan Wheatley [address] [place] [address] PCP - General Family Medicine 05/17/18
--- NOTE | 2024-08-10 14:32 | CA_ITS ---
APPROVED REPORT EXAM: Comprehensive 2D, Doppler, and color-flow Echocardiogram Inspector Canned Food Reconditioning: Lizeth Mejia RVT Ht: 5 ft 10 in Wt: 173lbs BSA: 1.96 BP: 132/71 mmHg Indications: MURMUR 2D Dimensions LA Volume 53.10 mL LA Volume Index 27.09 mL/m2 (M/F) 16-34 M-Mode Dimensions RVDd 3.09 cm (0.9-2.6) LA Diam 3.78 cm (1.9-4.0) LVDd 5.33 cm (3.5-5.7) LVDs 3.93 cm (3.5-5.7) IVSd 1.27 cm (0.6-1.1) PWd 0.85 cm (0.6-1.1) EF (Teich) 51.10% FS 26.30% EDV (Teich) 137.10 mL TAPSE 3.02 (<1.7) ESV (Teich) 67.10 mL LV Diastology E Decel Time 150 (160-240 msec) E/A Ratio 0.9 Aortic Valve PAUL Index 1.71 cm2/m2 AoV Peak Vern. 115.0 (50-130 cm/s) AI PHT 5680.00 ms AO Peak GR. 5.30 mmHg AO Mean GR. 3.20 (<5 mmHg) AO VTI 24.5 (18-25 cm) PAUL (VTI) 3.43 (2.5-4.5 cm2) Mitral Valve MV E Max Vern. 80.0 (40-130 cm/s) MV A Velocity 92.0 (40-130 cm/s) E/A Ratio 0.87 MV PHT 44.0 ms Pulmonary Valve PV Peak Velocity 77.0 (50-150 cm/s) Left Ventricle The left ventricle is normal size. The left ventricular systolic function is normal. The left ventricular ejection fraction is within the normal range. There is increased LV wall thickness. There is normal LV segmental wall motion. Transmitral Doppler flow pattern suggests impaired LV relaxation. LVEF is 55%. Right Ventricle The right ventricle is normal size. The right ventricular systolic function is normal. Atria The left atrium is mildly dilated. The right atrium is mildly dilated. there is no Doppler evidence of interatrial shunt. Aortic Valve The aortic valve is mildly thickened. There is no aortic valvular stenosis. Mild aortic regurgitation. Mitral Valve The mitral valve is normal in structure. No evidence of mitral valve stenosis. Trace mitral regurgitation. Tricuspid Valve Tricuspid valve is grossly normal in structure and function. Trace tricuspid regurgitation. There is insufficient TR jet to estimate RVSP. Pulmonic Valve The pulmonary valve is normal in structure. Trace pulmonic regurgitation. Great Vessels The aortic root is normal in size. IVC is normal in size and collapses >50% with inspiration. Pericardium There is no pericardial effusion. Other Information Study Quality: Fair Conclusion Normal biventricular systolic function. Mild biatrial dilation. Mild AI. Electronically signed by : Ester Mendez MD 08/17/2024 13:38:24
== END 2024-08-10 23:59 | disposition home or self-care (01) ==
LOC: RT 14:29
PROVIDERS: PCP Family Medicine; Visit Provider Family Medicine
DX: I35.1 Nonrheumatic aortic (valve) insufficiency (principal); I51.7 Cardiomegaly
CPT/HCPCS: 93306